=== PATIENT | female | born 1950 | race African-American/Black ===

== ENCOUNTER 2019-10-26 12:46 | Inpatient (IN) | payer OTHER ==
[~2019-10-26] VITALS: Ht 170.2 cm; Wt 72.6 kg
[2019-10-26 12:51] VITALS: BP 125/84
--- NOTE | 2019-10-26 14:42 | NUR ---
PT IN WHEELCHAIR TO ER BED 09
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
[2019-10-26] MEDS ORDERED: KETOROLAC 60 MG/2 ML VIAL IM ONE (15:05)
[2019-10-26] MEDS ORDERED: ONDANSETRON 4 MG ODT PO ONE (16:40)
[2019-10-26] MEDS ORDERED: MORPHINE SULFATE 4 MG/ML SYR IM ONE (16:40)
--- NOTE | 2019-10-26 17:55 | NUR ---
WHEELCHAIRED PT TO RESTROOM SO SHE COULD PROVIDE URINE SAMPLE, PT UNABLE TO URINATE.
[2019-10-26 18:12] LABS: BASOPHILS % (AUTO) 0.3 % (0.0-2.0); HEMOGLOBIN 11.3 g/dL (12.0-16.0); LYMPHOCYTES % (AUTO) 25.6 % (20.5-51.1); MEAN CORPUSCULAR HEMOGLOBIN 29 pg (27-31); MEAN CORPUSCULAR HGB CONC 32 g/dL (33-37); MEAN CORPUSCULAR VOLUME 89.8 fL (80-94); MONOCYTES # (AUTO) 0.6 K/uL (0.8-1.0); MONOCYTES % (AUTO) 14.8 % (1.7-9.3); NEUTROPHILS # (AUTO) 2.3 K/uL (1.8-7.7); NEUTROPHILS % (AUTO) 59.3 % (42.2-75.2); PLATELET COUNT (AUTO) 314 K/uL (140-450); RED CELL DISTRIBUTION WIDTH 14.9 % (11.6-13.7); WHITE BLOOD COUNT (AUTO) 3.9 K/uL (4.8-10.8)
[2019-10-26 18:44] LABS: ANION GAP 6.4 (8-16); CARBON DIOXIDE 31.1 mmol/L (21-32); CREATININE 1.1 mg/dL (0.6-1.3); POTASSIUM 3.5 mmol/L (3.5-5.1)
[2019-10-26 18:50] LABS: ALBUMIN 3.2 g/dL (3.4-5.0); TOTAL BILIRUBIN 0.3 mg/dL (0.0-1.0)
[2019-10-26 18:57] LABS: APPEARANCE,URINE CLEAR (CLEAR); BILIRUBIN,URINE NEGATIVE (NEGATIVE); BLOOD, URINE NEGATIVE (NEGATIVE); COLOR,URINE YELLOW (YELLOW); LEUKOCYTE ESTERASE ,URINE NEGATIVE (NEGATIVE); NITRITE, URINE NEGATIVE (NEGATIVE); UGLUCOSE NEGATIVE (NEGATIVE)
[2019-10-26] MEDS ORDERED: OXYC5TAB4 PO (19:15)
[2019-10-26] MEDS ORDERED: CYCL10TA33 PO (19:15)
[2019-10-26] MEDS ORDERED: ORE25 PO (19:15)
[2019-10-26] MEDS ORDERED: ASPI-1718 PO (19:15)
[2019-10-26] MEDS ORDERED: METO25TE2 PO (19:15)
[2019-10-26] MEDS ORDERED: DULO20EC PO (19:15)
[2019-10-26] MEDS ORDERED: ZOLP5TAB1 PO (19:15)
[2019-10-26] MEDS ORDERED: DOCUSATE SODIUM 100 MG GELCAP PO PRN (19:35)
[2019-10-26] MEDS ORDERED: HYDROcodone/APAP 7.5/325 MG 1 TAB PO PRN (19:35)
[2019-10-26] MEDS ORDERED: ACETAMINOPHEN 325 MG TAB PO PRN (19:35)
[2019-10-26 20:03] LABS: BARBITURATE, URINE NEG. ng/ml (NEG <=200); BENZODIAZEPINE, URINE NEG. ng/mL (NEG <=200); CANNABINOID, URINE NEG. ng/mL (NEG <=50); COCAINE, URINE NEG. ng/mL (NEG <=300); OPIATE, URINE POS. ng/mL (NEG <=2000); PHENCYCLIDINE SCREEN,URINE NEG. ng/mL (NEG <=25)
[2019-10-26 20:06] VITALS: BP 160/80
[2019-10-26] MEDS ORDERED: METO100T14 PO (20:11)
[2019-10-26 20:13] LABS: CHOL/HDL RATIO 2.7 (1-4.5); FREE T4 (FREE THYROXINE) 0.97 ng/dL (0.76-1.46); MAGNESIUM 1.6 mg/dL (1.8-2.4); PHOSPHORUS 2.9 mg/dL (2.5-4.9); THYROID STIMULATING HORMONE 0.78 uIU/mL (0.34-3.74)
--- NOTE | 2019-10-26 20:13 | NUR ---
Patient will be admitted to care of [facility]. Admited to [facility]. Will go to room 128B. Belongings list completed. Report to EDITH GARDUNO .
[2019-10-26 20:28] LABS: PROTHROMBIN TIME 9.4 secs (10.8-13.4)
[2019-10-26] MEDS ORDERED: MAG SULF 2000 MG/WATER PREMIX 50 ML IV SCH (21:10)
[2019-10-26] MEDS: NACL 0.9% 1,000 ML IV SCH (21:52)
[2019-10-26] MEDS: MORPHINE SULFATE 2 MG/ML SYR IVP PRN (22:08)
[2019-10-26] MEDS ORDERED: METOPROLOL SUCCINATE 50 MG TABER PO ONE ×2 (23:13→23:18)
[2019-10-26] MEDS ORDERED: METOPROLOL SUCCINATE 50 MG TABER PO SCH (23:30)
[2019-10-27] VITALS: BP 164/84
--- NOTE | 2019-10-27 00:55 | NUR ---
RETOOK BP AFTER GIVING THE METOPROLOL DR. CASTELLANOS AWARE; 155/ 80 ; HR 68
[2019-10-27] MEDS: MORPHINE SULFATE 2 MG/ML SYR IVP PRN ×6 (02:51→22:42)
--- NOTE | 2019-10-27 03:01 | NUR ---
INFORMED PRIMARY DR. ROSHNI PERALTA THROUGH MS. TY,MAIN TRUNKLINE NO. TO INFORM HIM THAT PT IS HOSPITALIZED AT [facility] IN CASE HE WANTS TO KNOW, PER PT REQUEST
--- NOTE | 2019-10-27 03:40 | NUR ---
PRIMARY PHYSICIAN DR. ROSHNI PERALTA TEL NO [phone]
--- NOTE | 2019-10-27 03:41 | NUR ---
PAIN SPECIALIST DR. GUTIERREZ- [facility]- [phone]
[2019-10-27 04:00] VITALS: BP 162/82
--- NOTE | 2019-10-27 04:00 | NUR ---
INFORMED DR. CASTELLANOS THAT THE BP OF THE PT IS 162/82(98) ; HR 64
--- NOTE | 2019-10-27 05:30 | NUR ---
DR. CASTELLANOS ORDERED TO GIVE THE ORETIC/ HYDROCHLOROTHIAZIDE (FOR 9AM) EARLY
[2019-10-27] MEDS: NACL 0.9% 1,000 ML IV SCH ×2 (05:35→15:01)
[2019-10-27] MEDS ORDERED: HYDROCHLOROTHIAZIDE 25 MG TAB ONE (05:41)
[2019-10-27 06:14] LABS: BASOPHILS % (AUTO) 0.1 % (0.0-2.0); HEMATOCRIT 32.3 % (36-48); HEMOGLOBIN 10.6 g/dL (12.0-16.0); LYMPHOCYTES # (AUTO) 0.9 K/uL (2.5-16.5); LYMPHOCYTES % (AUTO) 25.9 % (20.5-51.1); MEAN CORPUSCULAR HEMOGLOBIN 29 pg (27-31); MEAN CORPUSCULAR HGB CONC 33 g/dL (33-37); MEAN CORPUSCULAR VOLUME 88.7 fL (80-94); MONOCYTES # (AUTO) 0.7 K/uL (0.8-1.0); NEUTROPHILS # (AUTO) 1.9 K/uL (1.8-7.7); PLATELET COUNT (AUTO) 276 K/uL (140-450); RED BLOOD CELL COUNT(AUTO) 3.64 MIL/uL (4.20-5.40); RED CELL DISTRIBUTION WIDTH 14.6 % (11.6-13.7); WHITE BLOOD COUNT (AUTO) 3.4 K/uL (4.8-10.8)
--- NOTE | 2019-10-27 06:29 | NUR ---
PT CANNOT TOLERATE GOING TO THE BATHROOM, PLACED A COMMODE, PT HAVING SEVERE PAIN IN THE BACK DURING ADL'S. MEDICATED WITH MORPHINE
[2019-10-27 06:34] LABS: ANION GAP 7.2 (8-16); CARBON DIOXIDE 30.7 mmol/L (21-32); POTASSIUM 3.9 mmol/L (3.5-5.1)
--- NOTE | 2019-10-27 06:34 | NUR ---
CHEST XRAY DONE FOR CC: SOB
--- NOTE | 2019-10-27 06:35 | NUR ---
RETAKE BP= 143/70, HR 93
[2019-10-27 06:48] LABS: PHOSPHORUS 3.2 mg/dL (2.5-4.9)
[2019-10-27] MEDS ORDERED: KETOROLAC 15 MG/ML VIAL IM PRN (07:10)
--- NOTE | 2019-10-27 07:27 | NUR ---
RECEIVED REPORT FROM AFTERNOON BABYSITTER NURSE. PT IS IN BED RESTING WITH NO SIGNS OF DISTRESS NOTED. CALL LIGHT IN REACH.
[2019-10-27 08:00] VITALS: BP 168/90
--- NOTE | 2019-10-27 08:15 | NUR ---
PATIENT HAS BEEN SCREENED AND CATEGORIZED MODERATE NUTRITION RISK. PATIENT WILL BE SEEN WITHIN 3-5 DAYS OF ADMISSION. 10/29/19 10/31/[address]
[2019-10-27] MEDS ORDERED: METOPROLOL SUCCINATE 50 MG TABER PO SCH (09:00)
[2019-10-27] MEDS ORDERED: HYDROCHLOROTHIAZIDE 25 MG TAB PO SCH (09:00)
[2019-10-27] MEDS: ASPIRIN 81 MG TAB.CHEW PO SCH (09:39)
[2019-10-27] MEDS: DULoxetine 30 MG CAPDR PO SCH (09:39)
--- NOTE | 2019-10-27 10:14 | NUR ---
PT IS RESTING IN BED IN STABLE CONDITION. NO DISTRESS NOTED. CALL LIGHT IN REACH.
[2019-10-27 12:00] VITALS: BP 160/92
[2019-10-27] MEDS ORDERED: KETOROLAC 15 MG/ML VIAL IVP SCH (12:00)
--- NOTE | 2019-10-27 12:00 | NUR ---
PT IS IN BED AT THIS TIME. PATIENT REPORTS THAT PAIN IS TOLERABLE. NO DISTRESS NOTED. CALL LIGHT IN REACH.
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
--- NOTE | 2019-10-27 15:33 | NUR ---
Lockstitch Tunnel Elastic Operator Note: Basic Screen: Yes High Risk DC Screen Yes Name: RAMIN RÍOS Buskirk Relationship: NIECE Pre-Admission Living Arrangements: Lives Alone Prior ADL Independent Current Home Health Name/Tel: N/A Current DME/02 Name/Tel: [facility] Current Hospice Name/Tel: N/A Current Dialysis Name/Tel: N/A Healthcare Decision Maker: Patient Advance Directive No Physician Orders for Life Sustaining Treatment Form No Patient/Family Have Educational Needs No Information Taught: Advance Directive Community Resources Person Taught: Patient Teaching Tools: Verbal Factors Affecting Learning: None Participation Level: Refused Evaluation: Verbalizes Understanding Needs Additional Education: No Discipline: Case Mgt/Social Svcs Tentative Discharge Plan/Destination: No Needs Identified Will require assistance post discharge: No Referred to Hospitalist Medical Director: No Tentative Discharge Plan Summary: Patient is a 69-year-old female admitted for intractable back pain. Patient hs PMHX of lumbar disc herniation, scoliosis, and HTN. Patient was admitted from home. Patient lives home alone. SW met with patient at bedside to verify demographics. Patient reported that she had resided at [address] [place] [address] [place] [address]. Pateint reports no mental health history and no history of substance abuse. Patient stated that she is in between moving from her apartment and receives $1800 from [employer]. Patient's tentative discharge plan is to coordinate living arrangements. No further needs identified. Signature: GERALDINE Thorpe Date: Oct 27, 2019 Time: 15:31
[2019-10-27 16:00] VITALS: BP 180/83
[2019-10-27] MEDS ORDERED: hydrALAZINE 20 MG/ML VIAL IM SCH (16:00)
--- NOTE | 2019-10-27 16:00 | NUR ---
PT'S VITAL SIGNS WERE TAKEN AT 1600. NOTED WITH ELEVATED BLOOD PRESSURE AT 180/83. NOTIFIED RESIDENT MEDICATION GIVEN. WILL RECHECK BLOOD PRESSURE. PT IS OTHERWISE IN NO DISTRESS. CALL LIGHT IN REACH.
[2019-10-27] MEDS ORDERED: hydrALAZINE 20 MG/ML VIAL IVP SCH (17:30)
[2019-10-27] MEDS: CYCLOBENZAPRINE 10 MG TAB PO PRN (18:49)
--- NOTE | 2019-10-27 19:30 | NUR ---
SHIFT REPORT GIVEN TO FIRE CONTROL ASSISTANT NURSE. PT IS RESTING IN BED AT THIS TIME. PT'S VITAL SIGNS CONTINUE TO BE HIGH 189/[address] BAKER TO FIRE CONTROL ASSISTANT NURSE TO MONITOR BLOOD PRESSURE. CALL LIGHT IN REACH.
--- NOTE | 2019-10-27 19:30 | NUR ---
RECIEVED PT AAOX4 , NID , IV SITE INTACT AND PATENT . C/O PAIN - JUST MEDICATED . POC DISCUSSED AND VERBALIZED UNDERSTANDING - CALL LIGHT WITHIN REACH . ON SAFETY / FALL PRECAUTION PROTOCOL - BED ALARM ON - REMINDS THE USES OF CALL LIGHT WHENEVER SHE NEEDED HELP / ASSISTANCE - ON BEDSIDE COMMODE - FALL RISK - 1 PERSON ASSIST . WILL CONT. TO MONITOR.
[2019-10-27 20:00] VITALS: BP 160/90
--- NOTE | 2019-10-27 22:00 | NUR ---
MADE ROUNDS - VOIDE FREELY . C/O PAIN - WILL MEDICATE. CALL LIGHT WITHIN REACH.
[2019-10-27] MEDS: METOPROLOL SUCCINATE 50 MG TABER PO SCH (22:08)
[2019-10-27] MEDS ORDERED: ZOLPIDEM 5 MG TAB ONE (22:39)
[2019-10-27] MEDS: ONDANSETRON 4 MG/2 ML VIAL IM/IVP PRN (22:43)
[2019-10-28] VITALS: BP 153/85
--- NOTE | 2019-10-28 | NUR ---
MADE ROUNDS . NO S/SXS OF ACUTE DISTRESS NOTED AT THIS TIME.
[2019-10-28 04:00] VITALS: BP 140/91
--- NOTE | 2019-10-28 04:01 | NUR ---
MADE ROUNDS . NO S/SXS OF ACUTE DISTRESS NOTED AT THIS TIME.
[2019-10-28] MEDS: MORPHINE SULFATE 2 MG/ML SYR IVP PRN ×4 (05:38→22:24)
--- NOTE | 2019-10-28 06:00 | NUR ---
MADE ROUNDS - SHE SAID PAIN IS REDUCED - WILL CONT. TO MONITOR.
[2019-10-28 06:07] LABS: T4 (THYROXINE) 7.1 ug/dL (4.5-12.0)
[2019-10-28 06:24] LABS: BASOPHILS % (AUTO) 0.4 % (0.0-2.0); HEMATOCRIT 35.6 % (36-48); HEMOGLOBIN 11.6 g/dL (12.0-16.0); LYMPHOCYTES # (AUTO) 0.8 K/uL (2.5-16.5); LYMPHOCYTES % (AUTO) 25.3 % (20.5-51.1); MEAN CORPUSCULAR HEMOGLOBIN 29 pg (27-31); MEAN CORPUSCULAR HGB CONC 33 g/dL (33-37); MEAN CORPUSCULAR VOLUME 88.7 fL (80-94); MONOCYTES # (AUTO) 0.5 K/uL (0.8-1.0); MONOCYTES % (AUTO) 13.8 % (1.7-9.3); NEUTROPHILS % (AUTO) 60.5 % (42.2-75.2); PLATELET COUNT (AUTO) 311 K/uL (140-450); RED BLOOD CELL COUNT(AUTO) 4.02 MIL/uL (4.20-5.40); RED CELL DISTRIBUTION WIDTH 14.8 % (11.6-13.7); WHITE BLOOD COUNT (AUTO) 3.3 K/uL (4.8-10.8)
[2019-10-28 06:35] LABS: MAGNESIUM 1.7 mg/dL (1.8-2.4)
[2019-10-28 06:53] LABS: ANION GAP 12.1 (8-16); CARBON DIOXIDE 26.6 mmol/L (21-32); POTASSIUM 3.7 mmol/L (3.5-5.1)
--- NOTE | 2019-10-28 07:18 | NUR ---
ENDORSED TO AM SHIFT FOR CONT. OF CARE . PT IS WITH STABLE CONDITION.
--- NOTE | 2019-10-28 07:25 | NUR ---
REPORT RECEIVED FROM NIGHT NURSE, PT RESTING, EASILY AROUSABLE, NO COMPLAINTS AT THIS TIME. NO S/S ACUTE DISTRESS NOTED, CALL LIGHT AND PERSONAL ITEMS WITHIN EASY REACH, SAFETY PRECAUTION IN PLACE. WILL CONTINUE TO MONITOR.
[2019-10-28 08:00] VITALS: BP 136/82
[2019-10-28] MEDS ORDERED: ORE25 PO (08:30)
[2019-10-28] MEDS: DULoxetine 30 MG CAPDR PO SCH (08:53)
[2019-10-28] MEDS: ASPIRIN 81 MG TAB.CHEW PO SCH (08:53)
[2019-10-28] MEDS: HYDROCHLOROTHIAZIDE 25 MG TAB PO SCH (08:55)
[2019-10-28] MEDS ORDERED: MAGNESIUM OXIDE 400 MG TAB PO SCH (09:00)
--- NOTE | 2019-10-28 10:30 | NUR ---
PT SLEEPING, NO S/S/ OF ACUTE DISTRESS NOTED, CALL LIGHT AND PERSONAL ITEMS REMAIN WITHIN EASY REACH, SAFETY PRECAUTION IN PLACE. WILL CONTINUE TO MONITOR.
[2019-10-28 12:00] VITALS: BP 131/73
[2019-10-28] MEDS: NACL 0.9% 1,000 ML IV SCH ×3 (12:29→21:38)
--- NOTE | 2019-10-28 13:00 | NUR ---
PT REMAINS A/O ABLE TO COMMUNICATE NEEDS. STATES PAIN IN TOLERABLE AT THIS TIME, OFFERED ASSISTANCE TO REPOSITION, PT ON A PHONE CALL, CALL LIGHT AND PERSONAL ITEMS REMAIN WITHIN EASY REACH, SAFETY PRECAUTION IN PLACE. WILL CONTINUE TO MONITOR.
[2019-10-28 16:00] VITALS: BP 138/75
--- NOTE | 2019-10-28 16:00 | NUR ---
PT SLEEPING, NO S/S/ OF ACUTE DISTRESS NOTED, CALL LIGHT AND PERSONAL ITEMS REMAIN WITHIN EASY REACH, SAFETY PRECAUTION IN PLACE. WILL CONTINUE TO MONITOR.
--- NOTE | 2019-10-28 18:30 | NUR ---
PT REMAINS A/O ABLE TO COMMUNICATE NEEDS. HAVING DINNER AT THIS TIME, PAIN 2/10 AND TOLERABLE. CALL LIGHT AND PERSONAL ITEMS REMAIN WITHIN EASY REACH, SAFETY PRECAUTION IN PLACE. WILL CONTINUE TO MONITOR.
--- NOTE | 2019-10-28 19:20 | NUR ---
PT REMAINS A/O ABLE TO COMMUNICATE NEEDS. NO S/S/ OF ACUTE DISTRESS NOTED, CALL LIGHT AND PERSONAL ITEMS REMAIN WITHIN EASY REACH, SAFETY PRECAUTION IN PLACE. REPORT ENDORSED TO NURSE SCHWAB.
--- NOTE | 2019-10-28 19:20 | NUR ---
RECIEVED PT AAOX4 ,NID - O2 SAT WNL . IV SITE INTACT AND PATENT . W/ BEARABLE BACK PAIN SHE SAID AT THIS TIME. POC DISCUSSED AND VERBALIZED UNDERSTANDING - REMEINDS HER THE USE OF CALL LIGHT WHENEVER SHE NEEDED HELP / ASSISTANCE - CALL LIGHT WITHIN REACH . FALL RISK - ON SAFETY / FALL PRECAUTION PROTOCOL- BED ALARM ON - 1 PERSON ASSIST -USES BEDSIDE COMMODE. WILL CONT. TO MONITOR.
[2019-10-28 20:00] VITALS: BP 150/80
[2019-10-28] MEDS: CYCLOBENZAPRINE 10 MG TAB PO PRN (20:03)
[2019-10-28] MEDS: METOPROLOL SUCCINATE 50 MG TABER PO SCH (20:04)
--- NOTE | 2019-10-28 22:00 | NUR ---
MADE ROUNDS . PT REQUESTING SLEEPING PILL - WILL MEDICATE W/ TORRESIEN ORDERED . BP 120/78 . 02 SAT WNL .CALL LIGHT WITHIN REACH.
[2019-10-28] MEDS: ZOLPIDEM 5 MG TAB PO PRN (22:03)
--- NOTE | 2019-10-28 22:20 | NUR ---
ASSIST PT TO BEDSIDE COMMODE . VOIDED FREELY . AFTER VOIDED SHE SAID SHE FEELS PRESSURE ON HER BLADDER EVERY TIME SHE IS ABOUT TO VOID THEN IT'S GONE AWAY AFTER SHE URINATED - EXPLAINS TO HER THAT IS PROBABLY BLADDER DISTENTION WHICH NORMAL PHYSIOLOGICAL REACTION OF THE BLADDER ONCE IT'S FULL . U.O ASSESS CLEAR U.O W/ MOD. AMT.REVIEWED THE U/A RESULT ON THE RECORD WHICH UNREMARKABLE. WILL CONT TO MONITOR.AND WILL REFER TO NGA ONCE THE SYMPTOMS PERSIST.CALL LIGHT WITHIN REACH.
[2019-10-28] MEDS: ONDANSETRON 4 MG/2 ML VIAL IM/IVP PRN (22:24)
[2019-10-29] VITALS: BP 160/82
--- NOTE | 2019-10-29 | NUR ---
MADE ROUNDS . V/S TAKEN SBP INCREASING AND PT SAID THERE IS LIGHT PRESSURE TO HER LOWER ABD. [place] SHE IS NOT ABOUT TO VOID . WILL CONT. TO MONITOR . WILL RE CHECK E BP AND MONITOR THE ABDL PRESSURE FEELING . ASSESSED ABD. - SOFT AND FLAT .CALL LIGHT WITHIN REACH .
--- NOTE | 2019-10-29 02:00 | NUR ---
MADE ROUNDS . RE CHECK BP 184/79 . O2 SAT WNL . STILL C/O LIGHT PRESSURE ON LOWER ABD. - REFER TO DR. DEY - WAITING FURTHER ORDERS.
--- NOTE | 2019-10-29 03:00 | NUR ---
BP RE CHECK 180/60 - REFER TO NGA - WILL WAIT FURTHER ORDERS.
[2019-10-29 04:00] VITALS: BP 180/79
--- NOTE | 2019-10-29 04:00 | NUR ---
STILL NO FURTHER ORDERS FROM NGA - INFORM CHARGE NURSE. WILL CONT. TO MONITOR.
[2019-10-29] MEDS: MORPHINE SULFATE 2 MG/ML SYR IVP PRN ×5 (05:16→23:43)
[2019-10-29] MEDS: NACL 0.9% 1,000 ML IV SCH (05:24)
[2019-10-29 05:54] LABS: BASOPHILS % (AUTO) 0.2 % (0.0-2.0); HEMATOCRIT 35.1 % (36-48); HEMOGLOBIN 11.3 g/dL (12.0-16.0); LYMPHOCYTES # (AUTO) 1.1 K/uL (2.5-16.5); LYMPHOCYTES % (AUTO) 29.6 % (20.5-51.1); MEAN CORPUSCULAR HEMOGLOBIN 29 pg (27-31); MEAN CORPUSCULAR HGB CONC 32 g/dL (33-37); MEAN CORPUSCULAR VOLUME 89.3 fL (80-94); MONOCYTES # (AUTO) 0.5 K/uL (0.8-1.0); MONOCYTES % (AUTO) 14.1 % (1.7-9.3); NEUTROPHILS % (AUTO) 56.1 % (42.2-75.2); PLATELET COUNT (AUTO) 290 K/uL (140-450); RED BLOOD CELL COUNT(AUTO) 3.93 MIL/uL (4.20-5.40); RED CELL DISTRIBUTION WIDTH 14.7 % (11.6-13.7); WHITE BLOOD COUNT (AUTO) 3.6 K/uL (4.8-10.8)
[2019-10-29 06:00] LABS: ANION GAP 12.9 (8-16); POTASSIUM 3.9 mmol/L (3.5-5.1)
[2019-10-29 06:04] LABS: MAGNESIUM 1.6 mg/dL (1.8-2.4); PHOSPHORUS 2.8 mg/dL (2.5-4.9)
[2019-10-29] MEDS ORDERED: HYDR-5122 PO (06:19)
--- NOTE | 2019-10-29 06:45 | NUR ---
REFER AGAIN NGA ABOUT THE CONSISTENT HIGH BP - NGA MADE NEW ORDER AND CARRIED OUT. WILL CONTINUE TO MONITOR. THE PT.
[2019-10-29] MEDS ORDERED: hydrALAZINE 20 MG/ML VIAL IVP SCH (07:30)
--- NOTE | 2019-10-29 07:35 | NUR ---
ENDORSED TO AM SHIFT FOR CONT. OF CARE . INFORMED AM SHIFT NURSE HYDRALAZINE TIV JUST GIVEN.
--- NOTE | 2019-10-29 07:53 | NUR ---
RECEIVED REPORT FROM INSPECTOR SEMICONDUCTOR WAFER RN FOR CONTINUITY OF CARE. PT IS AAOX4, ABLE TO MAKE NEEDS KNOWN. PT DENIES PAIN OR SOB AT THIS TIME. PT HAS LEFT AC 20G INFUSING NS @ 20ML.HR. PT ON RA. VITAL SIGNS STABLE. PT ON 2GM SODIUM DIET. ABLE TO AMBULATE WITH ASSIST DUE TO WEAKNESS FROM BACK PAIN. PT SKIN INTACT. DISCUSSED POC WITH PT AND PT VERBALIZED UNDERSTANDING. ALL NEEDS CURRENTLY MET. WILL ROUND FREQUENTLY ON PT. BED IN LOW POSITION, CALL LIGHT WITHIN REACH.
[2019-10-29 08:00] VITALS: BP 186/95
--- NOTE | 2019-10-29 08:58 | NUR ---
ADMINISTERED MORNING MEDS TO PT. PT TOLERATED WELL. ALSO GAVE PT MORPHINE FOR 8/10 PAIN. ALL NEEDS MET. WILL CONTINUE TO ROUND ON PT.
[2019-10-29] MEDS ORDERED: LISINOPRIL 5 MG TAB PO SCH (09:00)
[2019-10-29] MEDS: ASPIRIN 81 MG TAB.CHEW PO SCH (09:13)
[2019-10-29] MEDS: DULoxetine 30 MG CAPDR PO SCH (09:13)
[2019-10-29] MEDS: HYDROCHLOROTHIAZIDE 25 MG TAB PO SCH (09:14)
--- NOTE | 2019-10-29 11:14 | NUR ---
PT RESTING IN BED WATCHING TV. ALL NEEDS MET. WILL CONTINUE TO ROUND ON PT.
--- NOTE | 2019-10-29 13:26 | NUR ---
PT SLEEPING. NO SIGNS OF PAIN OR DISTRESS. WILL CONTINUE TO ROUND ON PT.
[2019-10-29] MEDS ORDERED: MAGNESIUM OXIDE 400 MG TAB PO SCH (14:50)
--- NOTE | 2019-10-29 15:07 | NUR ---
PT EATING SNACK IN BED. ALL NEEDS MET. WILL CONTINUE TO ROUND ON PT.
[2019-10-29 16:00] VITALS: BP 160/79
[2019-10-29] MEDS ORDERED: DEXAMETHASONE 4 MG/ML VIAL IVP SCH (18:45)
--- NOTE | 2019-10-29 19:45 | NUR ---
RECEIVED REPORT FROM DAY SHIFT NURSE. AA0X4. PT SITTING ON BED, WATCHING TV. DENIES PAIN OR SOB. ON ROOM AIR. SKIN INTACT. IV TO LEFT AC #20G, NS AT 100 ML/HR INFUSING WELL. SAFETY PRECAUTION IN PLACE. CALL LIGHT WITHIN REACH.
--- NOTE | 2019-10-29 19:52 | NUR ---
ENDORSED PT TO BOOK ILLUSTRATOR FOR CONTINUITY OF CARE. PT IN STABLE CONDITION AT THIS TIME.
[2019-10-29 20:00] VITALS: BP 137/69
--- NOTE | 2019-10-29 21:00 | NUR ---
PT WATCHING TV. NO C/O PAIN AT THIS TIME. NO RESP DISTRESS NOTED. SAFETY PRECAUTION IN PLACE.
[2019-10-29] MEDS: METOPROLOL SUCCINATE 50 MG TABER PO SCH (22:21)
[2019-10-29] MEDS: CYCLOBENZAPRINE 10 MG TAB PO PRN (22:25)
[2019-10-29] MEDS: ZOLPIDEM 5 MG TAB PO PRN (23:39)
--- NOTE | 2019-10-29 23:45 | NUR ---
PT'S C/O PAIN 05/24. MORPHINE 4 MG IVP GIVEN. PT TOLERATED WELL.
[2019-10-30] VITALS: BP 116/81
--- NOTE | 2019-10-30 02:30 | NUR ---
PT SLEEPING. RESP EVEN AND UNLABORED. NO S/S OF PAIN OR DISCOMFORT.
[2019-10-30] MEDS: MORPHINE SULFATE 2 MG/ML SYR IVP PRN ×4 (05:26→20:10)
--- NOTE | 2019-10-30 05:30 | NUR ---
MORPHINE 4 MG IVP GIVEN FOR PAIN 05/24. ALL NEEDS ATTENDED AT THIS TIME. CALL LIGHT WITHIN REACH.
--- NOTE | 2019-10-30 07:26 | NUR ---
RECEIVED BEDSIDE REPORT FROM UNIT TECHNICIAN NURSE EMMA. PT IS AWAKE AND ALERT, IN NO DISTRESS. ON ROOM AIR, SKIN IS INTACT. IV SITE L AC 20 G INTACT, RUNNING NS 10 ML/HR. FALL PRECAUTIONS IN PLACE, CALL LIGHT IS WITHIN REACH. WILL CONTINUE TO MONITOR.
--- NOTE | 2019-10-30 07:30 | NUR ---
ENDORSED PT TO DAY SHIFT NURSE. PT IN STABLE CONDITION.
[2019-10-30 07:31] LABS: BASOPHILS % (AUTO) 0.3 % (0.0-2.0); EOSINOPHILS % (AUTO) 0.1 % (0.0-4.0); HEMATOCRIT 33.6 % (36-48); HEMOGLOBIN 11.3 g/dL (12.0-16.0); LYMPHOCYTES # (AUTO) 0.5 K/uL (2.5-16.5); LYMPHOCYTES % (AUTO) 19.9 % (20.5-51.1); MEAN CORPUSCULAR HEMOGLOBIN 30 pg (27-31); MEAN CORPUSCULAR HGB CONC 34 g/dL (33-37); MEAN CORPUSCULAR VOLUME 88.8 fL (80-94); MONOCYTES # (AUTO) 0.1 K/uL (0.8-1.0); MONOCYTES % (AUTO) 5.3 % (1.7-9.3); NEUTROPHILS # (AUTO) 1.9 K/uL (1.8-7.7); NEUTROPHILS % (AUTO) 74.4 % (42.2-75.2); PLATELET COUNT (AUTO) 329 K/uL (140-450); RED BLOOD CELL COUNT(AUTO) 3.78 MIL/uL (4.20-5.40); WHITE BLOOD COUNT (AUTO) 2.6 K/uL (4.8-10.8)
[2019-10-30] MEDS: NACL 0.9% 1,000 ML IV SCH (07:35)
[2019-10-30 08:00] VITALS: BP 162/79
[2019-10-30 08:19] LABS: MAGNESIUM 1.6 mg/dL (1.8-2.4)
[2019-10-30 08:20] LABS: PHOSPHORUS 2.9 mg/dL (2.5-4.9)
[2019-10-30 08:21] LABS: ANION GAP 11.6 (8-16); CARBON DIOXIDE 27.5 mmol/L (21-32); CREATININE 0.9 mg/dL (0.6-1.3); POTASSIUM 4.1 mmol/L (3.5-5.1)
[2019-10-30] MEDS: DULoxetine 30 MG CAPDR PO SCH (09:09)
[2019-10-30] MEDS: LISINOPRIL 5 MG TAB PO SCH (09:09)
[2019-10-30] MEDS: HYDROCHLOROTHIAZIDE 25 MG TAB PO SCH (09:10)
[2019-10-30] MEDS: ASPIRIN 81 MG TAB.CHEW PO SCH (09:10)
[2019-10-30] MEDS: CYCLOBENZAPRINE 10 MG TAB PO PRN (09:11)
--- NOTE | 2019-10-30 09:15 | NUR ---
AM MEDS ADMINISTERED, PT TOLERATED WELL. PT ASKED FOR HER PRN FLEXERIL FOR MUSCLE SPASMS.
--- NOTE | 2019-10-30 10:00 | NUR ---
PT WALKING WITH PHYSICAL THERAPY AT THIS TIME
[2019-10-30] MEDS ORDERED: MAG SULF 2000 MG/WATER PREMIX 50 ML IV SCH (13:30)
--- NOTE | 2019-10-30 13:48 | NUR ---
IV MAGNESIUM INFUSING PER MD ORDER.
[2019-10-30 16:00] VITALS: BP 135/69
--- NOTE | 2019-10-30 19:30 | NUR ---
ENDORSED PT TO DECK STEWARD NURSE IN STABLE CONDITION
--- NOTE | 2019-10-30 19:31 | NUR ---
REPORT RECEIVED FROM AM NURSE AT BEDSIDE. PT IN STABLE CONDITION. AAOX4. INTRODUCED SELF TO PT. BOARD UPDATED. NO COMPLAINTS OF PAIN. NO SOB. AFEBRILE. PT IS AMBULATORY WITH ASSIST. PT HAS BEDSIDE COMMODE. IV SITE R FA 22G RUNNING NS@10ML/HR PATENT AND INTACT. SKIN WARM, DRY, AND INTACT WITH NO OPEN WOUNDS. BED LOCKED IN LOW POSITION. CALL ESPINOZA WITHIN REACH. SAFETY PRECAUTION IN PLACE. ALL NEEDS MET AT THIS TIME.
[2019-10-30] MEDS: METOPROLOL SUCCINATE 50 MG TABER PO SCH (20:10)
--- NOTE | 2019-10-30 20:10 | NUR ---
TROPROLOL GIVEN PO. MORPHINE GIVEN FOR 710 BACK PAIN. PT TOLERATED WELL.
--- NOTE | 2019-10-30 21:45 | NUR ---
PT UP AND WATCHING TV. NO S/S OF DISTRESS NOTED. WILL CONTINUE TO MONITOR.
[2019-10-30] MEDS: ZOLPIDEM 5 MG TAB PO PRN (23:03)
--- NOTE | 2019-10-30 23:03 | NUR ---
AMBIEN GIVEN FOR INSOMNIA. PT TOLERATED WELL.
[2019-10-31] VITALS: BP 133/79
--- NOTE | 2019-10-31 00:55 | NUR ---
PT SLEEPING COMFORTABLY BUT AROUSABLE. NO S/S OF DISTRESS NOTED. NO COMPLAINTS OF PAIN. NO SOB. AFEBRILE. WILL CONTINUE TO MONITOR.
[2019-10-31] MEDS: MORPHINE SULFATE 2 MG/ML SYR IVP PRN ×7 (01:44→22:58)
--- NOTE | 2019-10-31 01:44 | NUR ---
MORPHINE GIVEN FOR 8/10 BACK PAIN. PT TOLERATED WELL.
--- NOTE | 2019-10-31 03:40 | NUR ---
PT SLEEPING COMFORTABLY BUT AROUSABLE. NO S/S OF DISTRESS NOTED. RESPIRATIONS EVEN, UNLABORED, AND WNL. WILL CONTINUE TO MONITOR.
--- NOTE | 2019-10-31 05:11 | NUR ---
MORPHINE GIVEN FOR 8/10 BACK PAIN. PT TOLERATED WELL.
[2019-10-31] MEDS: NACL 0.9% 1,000 ML IV SCH ×2 (05:39→22:57)
[2019-10-31 06:08] LABS: BASOPHILS % (AUTO) 0.1 % (0.0-2.0); HEMATOCRIT 33.4 % (36-48); LYMPHOCYTES % (AUTO) 47.4 % (20.5-51.1); MEAN CORPUSCULAR HEMOGLOBIN 29 pg (27-31); MEAN CORPUSCULAR HGB CONC 33 g/dL (33-37); MEAN CORPUSCULAR VOLUME 88.8 fL (80-94); MONOCYTES # (AUTO) 0.4 K/uL (0.8-1.0); MONOCYTES % (AUTO) 8.9 % (1.7-9.3); NEUTROPHILS # (AUTO) 1.8 K/uL (1.8-7.7); NEUTROPHILS % (AUTO) 43.6 % (42.2-75.2); PLATELET COUNT (AUTO) 308 K/uL (140-450); RED BLOOD CELL COUNT(AUTO) 3.76 MIL/uL (4.20-5.40); RED CELL DISTRIBUTION WIDTH 15.2 % (11.6-13.7); WHITE BLOOD COUNT (AUTO) 4.2 K/uL (4.8-10.8)
[2019-10-31 06:26] LABS: MAGNESIUM 2.1 mg/dL (1.8-2.4); PHOSPHORUS 3.2 mg/dL (2.5-4.9)
[2019-10-31 06:29] LABS: ANION GAP 11.8 (8-16); CARBON DIOXIDE 27.7 mmol/L (21-32); CREATININE 1.1 mg/dL (0.6-1.3); POTASSIUM 3.5 mmol/L (3.5-5.1)
--- NOTE | 2019-10-31 07:25 | NUR ---
RECEIVED BEDSIDE SHIFT REPORT FROM CHAIRMAN NURSE FOR CONTINUITY OF CARE. PATIENT IS RESTING IN BED, IV LEFT HAND 22 G INTACT RUNNING NS 20 MEQ KCL 80 ML/HR. PATIENT DENIES BOWEL MOVEMENT AND REPORTS CONSTIPATION. MEDICATIONS TO BE GIVEN FOR CONSTIPATION. PATIENT IS AAOX3, RESPONDS TO VERBAL COMMANDS. UNAMBULATORY DUE TO HX OF RIGHT SIDED STROKE. BYNUM CATHETER IN PLACE AND INTACT. WILL CONTINUE TO MONITOR.
[2019-10-31 08:00] VITALS: BP 137/64
[2019-10-31] MEDS: DULoxetine 30 MG CAPDR PO SCH (08:19)
[2019-10-31] MEDS: HYDROCHLOROTHIAZIDE 25 MG TAB PO SCH (08:20)
[2019-10-31] MEDS: ASPIRIN 81 MG TAB.CHEW PO SCH (08:20)
[2019-10-31] MEDS: LISINOPRIL 5 MG TAB PO SCH (08:20)
--- NOTE | 2019-10-31 10:35 | NUR ---
MEDICATIONS ADMINISTERED PO, TOLERATED WELL, MD ORDERED MINERAL OIL ENEMA TO ASSIST IN RELIEVING FECAL IMPACTION. TORADOL GIVEN FOR PAIN RELATED TO CONSTIPATION. PATIENT PRESENTS COOPERATIVE. LANTUS 40 UNITS GIVEN, BLOOD SUGAR 262 AND WILL BE COVERED WITH HUMALOG INSULIN. WILL CONTINUE TO MONITOR.
[2019-10-31] MEDS: CYCLOBENZAPRINE 10 MG TAB PO PRN (11:36)
--- NOTE | 2019-10-31 12:50 | NUR ---
PATIENT WAS VISITED BY MICHAEL CHOWDARY FOR MORE INFO ON SERVICES PROVIDED. SHE IS ADVISED TO CONTINUE PT TX AT SNF. PATIENT COMPLAINS OF PAIN AND IS MEDICATED WITH MORPHINE 2 MG. BED IN LOW POSITION CALL LIGHT ON AND WITHIN REACH. WILL CONTINUE TO MONITOR.
--- NOTE | 2019-10-31 15:20 | NUR ---
OBSERVED CHEST RISE AND FALL, EVEN, UNLABORED BREATHING. LUNCH TOLERATED WELL. NO SIGNS OF DISTRESS AT THIS TIME. WILL CONTINUE TO MONITOR.
[2019-10-31 16:00] VITALS: BP 118/74
[2019-10-31] MEDS ORDERED: LISI-424 PO (16:15)
--- NOTE | 2019-10-31 16:21 | NUR ---
10/31/19 RD INITIAL ASSESSMENT COMPLETED PLEASE REFER TO NUTRITION ASSESSMENT UNDER CARE ACTIVITY FOR ESTIMATED NUTRITIONAL NEEDS. 1. CONTINUE NA2GM DIET TOLERATED 2. RD PROVIDED NUTRITION EDUCATION FOR HYPERTENSION/LOW SODIUM THERAPY. PT ACCEPTED 3. ENCOURAGED PO INTAKE 4. RD TO FOLLOW-UP 2-3 DAYS, MODERATE RISK STEPHANY SALCEDO RD
--- NOTE | 2019-10-31 17:50 | NUR ---
PATIENT ENDORSES HAVING PAIN IN LOWER BACK, MEDICATION TO BE ADMINISTERED. CALL LIGHT ON AND WITHIN REACH, BED IN LOW POSITION, EDUCATED ON THE IMPORTANCE OF HEALTHY DISTRACTIONS TO HELP ALLEVIATE PAIN. EDUCATED ON POSITION CHANGES IN ALLEVIATING SORENESS AND PAIN. PATIENT VERBALIZED UNDERSTANDING. WILL CONTINUE TO MONITOR.
--- NOTE | 2019-10-31 19:25 | NUR ---
BEDSIDE SHIFT REPORT GIVEN TO ONCOMING NURSE FOR CONTINUITY OF CARE.
--- NOTE | 2019-10-31 19:26 | NUR ---
REPORT RECEIVED FROM AM NURSE AT BEDSIDE. PT IN STABLE CONDITION. AAOX4. INTRODUCED SELF TO PT. BOARD UPDATED. PT HAS COMPLAINTS OF PAIN. WILL MEDICATE. NO SOB. AFEBRILE. PT IS AMBULATORY. IV SITE R FA 22G RUNNING NS@10ML/HR PATENT AND INTACT. SKIN WARM, DRY, AND INTACT WITH NO OPEN WOUNDS. BED LOCKED IN LOW POSITION. CALL [place] WITHIN REACH. SAFETY PRECAUTION IN PLACE. ALL NEEDS MET AT THIS TIME.
--- NOTE | 2019-10-31 19:30 | NUR ---
MORPHINE GIVEN FOR 10/10 BACK PAIN. PT TOLERATED WELL.
[2019-10-31] MEDS: METOPROLOL SUCCINATE 50 MG TABER PO SCH (21:00)
--- NOTE | 2019-10-31 21:20 | NUR ---
TOPROLOL HELD DUE TO DECREASED BP.
--- NOTE | 2019-10-31 22:58 | NUR ---
MORPHINE GIVEN FOR 8/10 BACK PAIN. PT TOLERATED WELL.
[2019-10-31] MEDS: ZOLPIDEM 5 MG TAB PO PRN (23:30)
--- NOTE | 2019-10-31 23:30 | NUR ---
AMBIEN GIVEN FOR INSOMNIA. PT TOLERATED WELL.
[2019-11-01] VITALS: BP 105/64
--- NOTE | 2019-11-01 00:53 | NUR ---
PT SLEEPING COMFORTABLY BUT AROUSABLE. NO S/S OF DISTRESS NOTED. WILL CONTINUE TO MONITOR.
--- NOTE | 2019-11-01 02:30 | NUR ---
PT SLEEPING COMFORTABLY BUT AROUSABLE. NO S/S OF DISTRESS NOTED. RESPIRATIONS EVEN, UNLABORED, AND WNL. WILL CONTINUE TO MONITOR.
[2019-11-01] MEDS: MORPHINE SULFATE 2 MG/ML SYR IVP PRN ×5 (04:05→18:11)
--- NOTE | 2019-11-01 04:05 | NUR ---
MORPHINE GIVEN FOR 8/10 BACK PAIN. PT TOLERATED WELL.
--- NOTE | 2019-11-01 07:00 | NUR ---
PT SLEEPING COMFORTABLY BUT AROUSABLE. PT IN STABLE CONDITION.
--- NOTE | 2019-11-01 07:25 | NUR ---
RECEIVED BEDSIDE REPORT FROM INTERNAL AUDIT CONSULTANT NURSE FOR CONTINUITY OF CARE. PT IS RESTING ON BED AT THIS TIME. AROUNSABLE TO VOICE. RESPIRATION EVEN AND UNLABORED ON RA. DENIED PAIN, SOB, AND NAUSEA. NO SIGNS OF DISTRESS NOTED. IV ON R FA 22G, CLEAN AND INTACT, INFUSING PER MD ORDER. SKIN CLEAN AND DRY. PT IS CONTINENT AND ABLE TO AMBULATE WITH WALK WITH ASSIST. DISCUSSED PLAN OF CARE WITH PT AND PT SAID OK. SAFETY MEASURES IN PLACE. BED IN LOW POSITION AND CALL LIGHT WITHIN REACH. INSTRUCTED PT TO USE THE CALL LIGHT FOR ANY ASSISTANCE AND PT WAS AWARE.
--- NOTE | 2019-11-01 07:39 | NUR ---
ANSWERED PT'S CALL LIGHT AND PT COMPLAINED SHE HAS 9/10 ON HER LOWER EXTREMITY. BLOOD PRESSURES TAKEN, AND RECEIVED 155/80 PULSE 85. REPOSITIONED PT AND PT "STATED THE PAIN WONT GO AWAY. I NEED SOMETHING FOR PAIN." MEDICATED WITH PRN PAIN MED, MED ED PROVIDED TO PT, AND PT VERBALIZED UNDERSTANDING. PT IS EATING BREAKFAST ON BED AT THIS TIME. NO SIGNS OF DISTRESS NOTED. SAFETY MEASURES IN PLACE. BED IN LOW POSITION AND CALL LIGHT WITHIN REACH. INSTRUCTED PT TO USE THE CALL LIGHT FOR ANY ASSISTANCE AND PT WAS AWARE.
[2019-11-01 08:00] VITALS: BP 145/81
[2019-11-01] MEDS: ASPIRIN 81 MG TAB.CHEW PO SCH (08:56)
[2019-11-01] MEDS: HYDROCHLOROTHIAZIDE 25 MG TAB PO SCH (08:56)
[2019-11-01] MEDS: LISINOPRIL 5 MG TAB PO SCH (08:56)
[2019-11-01] MEDS: DULoxetine 30 MG CAPDR PO SCH (08:57)
--- NOTE | 2019-11-01 08:57 | NUR ---
CHECKED BP AND RECEIVED 145/81 PULSE 87 PRIOR TO ADMINISTER MEDS. ADMINISTERED AM SCHEDULED MEDS PER MD ORDER, MEDS ED PROVIDED TO PT AND PT VERBALIZED UNDERSTANDING. PT TOLERATED MEDS WELL. PT AWAKE AND WATCHING TV ON BED AT THIS TIME. DENIED PAIN, NAUSEA AND DIZZINESS. NO SIGNS OF DISTRESS NOTED. SAFETY MEASURES IN PLACE. BED IN LOW POSITION AND CALL LIGHT WITHIN REACH. INSTRUCTED PT TO USE THE CALL LIGHT FOR ANY ASSISTANCE AND PT SAID OK.
--- NOTE | 2019-11-01 11:19 | NUR ---
ANSWERED PT'S CALL LIGHT AND PT COMPLAINED SHE HAS 8/10 ON HER LOWER EXTREMITY. MEDICATED WITH PRN PAIN MED, MED ED PROVIDED TO PT, AND PT VERBALIZED UNDERSTANDING. PT IS AWAKE AND RESTING ON BED AT THIS TIME. NO SIGNS OF DISTRESS NOTED. SAFETY MEASURES IN PLACE. BED IN LOW POSITION AND CALL LIGHT WITHIN REACH. INSTRUCTED PT TO USE THE CALL LIGHT FOR ANY ASSISTANCE AND PT WAS AWARE.
--- NOTE | 2019-11-01 12:30 | NUR ---
PER CHAPARRO PTB IS ACCEPTED AT [facility], [address], [place] [address], TEL#: [phone], ROOM 500 BED-B, DR ROCHE ACCEPTING PHYSICIAN. CALLED [facility] [place], SPOKE WITH JUSTIN FROM [facility] [place], ETA FOR BLS TRANSPORT WILL BE AT 3PM TODAY. SWATI ASSIGNED MADE AWARE. Addendum: 11/01/19 at 1251 by Johnna Price RN PER CHAPARRO PT* IS ACCEPTED AT [facility]
--- NOTE | 2019-11-01 13:57 | NUR ---
PT AWAKE AND RESTING ON BED AT THIS TIME. NO SIGNS OF DISTRESS NOTED. SAFETY MEASURES IN PLACE.
--- NOTE | 2019-11-01 14:44 | NUR ---
ANSWERED PT'S CALL LIGHT AND PT COMPLAINED SHE HAS 8/10 ON HER LOWER EXTREMITY. REPOSITIONED AND TAUGHT PT WITH RELAXATION TECHNIQUE, PER PT, THE PAIN IS STILL 8/10. MEDICATED WITH PRN PAIN MED, MED ED PROVIDED TO PT, AND PT VERBALIZED UNDERSTANDING. PT IS AWAKE AND RESTING ON BED AT THIS TIME. TALKING TO INVERTED BLOCK OPERATOR AT THIS TIME. NO SIGNS OF DISTRESS NOTED. SAFETY MEASURES IN PLACE. BED IN LOW POSITION AND CALL LIGHT WITHIN REACH. INSTRUCTED PT TO USE THE CALL LIGHT FOR ANY ASSISTANCE AND PT WAS AWARE.
--- NOTE | 2019-11-01 14:49 | NUR ---
PER CHAPARRO, PT REFUSED TO GO TO [facility]. [facility] CANCELLED, SPOKE WITH JUSTIN FROM [facility].
--- NOTE | 2019-11-01 15:57 | NUR ---
PT AWAKE AND RESTING ON BED AT THIS TIME. DENIED PAIN, SOB, AND DIZZINESS. NO SIGNS OF DISTRESS NOTED. SAFETY MEASURES IN PLACE. BED IN LOW POSITION AND CALL LIGHT WITHIN REACH. BED ALARM ACTIVATED. INSTRUCTED PT TO USE THE CALL LIGHT FOR ANY ASSISTANCE AND PT WAS AWARE.
[2019-11-01 16:00] VITALS: BP 121/70
[2019-11-01] MEDS: CYCLOBENZAPRINE 10 MG TAB PO PRN (16:46)
--- NOTE | 2019-11-01 16:46 | NUR ---
PT COMPLAINED MUSCLE SPASM, ADMINISTERED PRN CYCLOBENZAPRINE, MED ED PROVIDED AND PT TOLERATED WELL. PT AWAKE AND EATING APPLE ON BED. NO SIGNS OF DISTRESS NOTED. SAFETY MEASURES IN PLACE. BED IN LOW POSITION AND CALL LIGHT WITHIN REACH. BED ALARM ACTIVATED.
--- NOTE | 2019-11-01 17:19 | NUR ---
PT AWAKE AND RESTING ON BED AT THIS TIME. DENIED PAIN, SOB AND DIZZINESS. NO SIGNS OF DISTRESS NOTED. SAFETY MEASURES IN PLACE. BED IN LOW POSITION AND CALL LIGHT WITHIN REACH. BED ALARM ACTIVATED.
--- NOTE | 2019-11-01 17:35 | NUR ---
WENT TO PT'S BEDSIDE WITH MARYANNE GUEST EXPERIENCE SPECIALIST. PT AGREED TO GO TO [facility] IN [facility]. CALLED [facility], SET UP TRANSPORTATION WITH JUSTIN, EARLIEST ETA WILL BE AT 8PM TONIGHT. KEDAR-RN MADE AWARE.
--- NOTE | 2019-11-01 17:37 | NUR ---
CALLED PT'S SISTER RAMIN [phone] AND INFORMED THAT PT IS GOING TO TRANSFER [facility] THIS EVENING. RAMIN WAS AWARE AND ACKNOWLEDGED OF THE TRANSFER. PER RAMIN, SHE WILL ALSO CONTACT PT.
--- NOTE | 2019-11-01 17:50 | NUR ---
CALLED [facility] [phone] AND GAVE FULL REPORT TO VINNY Alcantara RN. ANSWERED ALL VINNY'S QUESTIONS AND VINNY WAS AWARE THAT PT IS GETTING [employer] AT 8 PM FROM [facility] AND IT TAKES 2 HOURS TO GET TO HER FACILITY. VINNY WAS AWARE THAT PT IS GOING TO ROOM 500 B AND UNDER THE CARE OF DR ROCHE. PROVIDED A CALL BACK # TO VINNY FOR FURTHER QUESTION.
--- NOTE | 2019-11-01 18:26 | NUR ---
DR PERALTA IS TALKING TO PT AT BEDSIDE. NO SIGNS OF DISTRESS NOTED. SAFETY MEASURES IN PLACE.
--- NOTE | 2019-11-01 19:10 | NUR ---
ENDORSED PT AT BEDSIDE TO INTERNAL MEDICINE PHYSICIAN NURSE FOR CONTINUITY OF CARE. PT IS AWAKE AND RESTING ON BED AT THIS TIME. PT IS IN STABLE CONDITION. SAFETY MEASURES IN PLACE. BED ALARM ACTIVATED.
--- NOTE | 2019-11-01 19:15 | NUR ---
RECEIVED REPORT FROM DAYSHIFT NURSE. PT IS RESTING ON BED AT THIS TIME. ABLE TO MAKE NEEDS KNOWN. SKIN WARM AND DRY TO TOUCH. RESPIRATIONS EVEN AND UNLABORED WITH NO SOB OR RESPIRATORY DISTRESS. SAFETY MEASURES IN PLACE. WILL CONTINUE TO MONITOR.
--- NOTE | 2019-11-01 19:40 | NUR ---
PT RESTING IN BED. ABLE TO MAKE NEEDS KNOWN. SKIN WARM AND DRY TO TOUCH. RESPIRATIONS EVEN AND UNLABORED WITH NO SOB OR RESPIRATORY DISTRESS. PT IS AWARE OF TRANSFER TO [facility] AND THE DISCHARGE PAPERS WERE SIGNED. STAFF AT [facility] ARE AWARE OF HER ARRIVAL. MEDICS ARRIVED AND REPORT WAS GIVEN WELL FACE SHEET AND DISCHARGE PACKET. PT GATHERED ALL OF HER BELONGINGS. ID BAND, ALLERGY BAND, AND INTACT IV CANNULA WERE REMOVED. PT REFUSED PNA AND FLU VACCINE. PT CHANGED INTO [place]. PT SAFELY TRANSFERRED [facility]. PT IS STABLE
== END 2019-11-01 19:40 | DRG 552 ==
LOC: MED 12:46 → MMU 19:38
PROVIDERS: ADMIT General Practice; ATTEND General Practice
DX: M54.5 Low back pain (principal); E44.0 Moderate protein-calorie malnutrition; E83.42 Hypomagnesemia; I10 Essential (primary) hypertension; G89.4 Chronic pain syndrome; M19.90 Unspecified osteoarthritis, unspecified site; D64.9 Anemia, unspecified; D72.819 Decreased white blood cell count, unspecified; Z68.25 Body mass index [BMI] 25.0-25.9, adult; Z79.82 Long term (current) use of aspirin; Z79.899 Other long term (current) drug therapy; Z86.73 Personal history of transient ischemic attack (TIA), and cerebral infarction without residual deficits; Z85.3 Personal history of malignant neoplasm of breast; Z82.49 Family history of ischemic heart disease and other diseases of the circulatory system
CPT/HCPCS: 36415; 71045; 72100; 80048; 80053; 80305; 81003; 82150; 83036; 83605; 83690; 83735; 83880; 84100; 84436; 84439; 84443; 84479; 84484; 85025; 85610; 85730; 87081; 93005; 96372; 97110; 97112; 97116; 97161-GP; 97530; 99285; C1758; J0360; J1100; J1885; J2270; J2405; J3475; J7030; Q0092; Q0162